=== PATIENT | male | born 1940 | race Caucasian/White ===

== ENCOUNTER 2019-05-07 07:57 | Outpatient (RCR) | payer MEDICARE, OTHER, SELFPAY ==
--- NOTE | 2019-05-07 08:28 | PTOPEVAL ---
Thank you for referring this patient to [facility]. Please review, sign, date and return this plan of care NONI. I agree with and certify that the following plan of care is medically necessary. Referring Physician Date Admitting Provider: Attending Provider: Shanique Holly NP Referring Provider: *PT Outpatient Evaluation Start: 05/07/19 08:02 Freq: Status: Active Protocol: Document 05/07/19 08:02 NESTOR (Rec: 05/07/19 08:28 NESTOR [id number]) Therapy Assessment Status Assessment Status Assessment Status Evaluation Outpatient Past Medical History Neurological History Hx Neurological Disorders No Significant History Cardiovascular History Hx Cardiac Catheterization Yes Hx Coronary Stent Yes Hx Hypertension Yes Respiratory History Hx Respiratory Disorders No Significant History Gastrointestinal History Hx Gastrointestinal Disorders No Significant History Genitourinary History Hx Genitourinary Disorders No Significant History Musculoskeletal History Hx Back Injury Yes Hx Back Pain Yes Hx Orthopedic Surgery Yes Hx Spinal Surgery Yes Hematological History Hx Hematological Disorders No Significant History Endocrine History Hx Endocrine Disorders No Significant History HEENT History Hx HEENT Disorders No Significant History Integumentary History Hx Skin Disorders No Significant History Reproductive History Hx Reproductive Disorders No Significant History Psychosocial History Hx Psychiatric Disorders No Significant History Pain History History of Any Previous or Ongoing No Significant History Instance of Pain Anesthesia History Hx Anesthesia Reactions No Significant History Other History Hx Cancer Yes: skin-basal cell Evaluation Information Problem Diagnosis spinal stenosis, s/p lumbar fusion Onset 05/18/18 Subjective Information Pt. reports that he underwent Query Text:As Reported By Patient/ back surgery on 05/18/18. He Family reports that he was hospitalized till last week. He states that pain is minimal currently, but states that pain will increase throughout the day. He reports that prior to his surgery he was not using a walker. He states that he is currently using a walker for all ambulation. He states that he is currently
== END 2019-06-01 08:25 | disposition home or self-care (01) ==
LOC: CHSPT 07:57
PROVIDERS: Visit Provider Nurse Practitioner
DX: Z98.1 Arthrodesis status (principal); M48.07 Spinal stenosis, lumbosacral region; E78.5 Hyperlipidemia, unspecified; I25.10 Atherosclerotic heart disease of native coronary artery without angina pectoris; I10 Essential (primary) hypertension; K21.9 Gastro-esophageal reflux disease without esophagitis
CPT/HCPCS: 97016; 97110; 97116; 97161; 97530

== ENCOUNTER 2019-11-05 08:46 | Outpatient (RCR) | payer MEDICARE, OTHER, SELFPAY ==
--- NOTE | 2019-11-05 10:07 | PTOPEVAL ---
Thank you for referring Jori Villegas to [facility]. Please review, sign, date and return this plan of care NNOI. I agree with and certify that the following plan of care is medically necessary. Referring Physician Date Admitting Provider: Attending Provider: PHYSICIAN NOT ON STAFF Referring Provider: *PT Outpatient Evaluation Start: 11/05/19 07:57 Freq: Status: Active Protocol: Document 11/05/19 08:40 NESTOR (Rec: 11/05/19 09:55 NESTOR [id number]) Therapy Assessment Status Assessment Status Assessment Status Evaluation Outpatient Past Medical History Neurological History Hx Neurological Disorders No Significant History Cardiovascular History Hx Cardiac Catheterization Yes Hx Coronary Stent Yes Hx Hypertension Yes Respiratory History Hx Respiratory Disorders No Significant History Gastrointestinal History Hx Gastrointestinal Disorders No Significant History Genitourinary History Hx Genitourinary Disorders No Significant History Musculoskeletal History Hx Back Injury Yes Hx Back Pain Yes Hx Orthopedic Surgery Yes Hx Spinal Surgery Yes Hematological History Hx Hematological Disorders No Significant History Endocrine History Hx Endocrine Disorders No Significant History HEENT History Hx HEENT Disorders No Significant History Integumentary History Hx Skin Disorders No Significant History Reproductive History Hx Reproductive Disorders No Significant History Psychosocial History Hx Psychiatric Disorders No Significant History Pain History History of Any Previous or Ongoing No Significant History Instance of Pain Anesthesia History Hx Anesthesia Reactions No Significant History Other History Hx Cancer Yes: skin-basal cell Evaluation Information Problem Diagnosis lumbar stenosis with neurogenic claudication Onset 10/17/19 Subjective Information Pt. reports that his back pain Query Text:As Reported By Patient/ started about the beginning Family of the month. 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 He states that he noted increase in back pain shortly after. He reports pain is only located on the right side and states that pain is most notable after getting out of a supine or seated position. He states
== END 2019-12-10 09:16 | disposition home or self-care (01) ==
LOC: CHSPT 08:46
DX: M48.062 Spinal stenosis, lumbar region with neurogenic claudication (principal)
CPT/HCPCS: 97014; 97110; 97161; G0283

== ENCOUNTER → 2021-01-06 11:02 | Outpatient (CLI) | payer BC, SELFPAY ==
--- NOTE | ~2021-01-06 | US_ITS ---
US renal BI 01/06/2021 11:29 Procedure: Realtime transabdominal ultrasound of the kidneys and bladder. Indication: Stage III chronic kidney disease Comparison: No prior studies for comparison. Findings: Renal echotexture is normal bilaterally without hydronephrosis, contour deforming mass or r enal calculus. There is a right renal cyst measuring 1.6 cm. No solid masses. The right kidney measur es 9.4 cm and left kidney measures 10.1 cm. Bladder within normal limits. Impression: 1: Right renal cyst measuring 1.6 cm. Reviewed, dictated and finalized at location A. Impression: 1: Right renal cyst measuring 1.6 cm.
== END ==
PROVIDERS: PCP Family Medicine; Visit Provider Internal Medicine Nephrology
DX: N18.31 Chronic kidney disease, stage 3a (principal); N28.1 Cyst of kidney, acquired
CPT/HCPCS: 76775

== ENCOUNTER 2021-10-06 10:58 | Outpatient (RCR) | payer BC, SELFPAY ==
--- NOTE | 2021-10-06 15:37 | PTOPEVAL ---
Thank you for referring Jori Villegas to [facility].? The patient is scheduled to be seen for therapy? ____x/week for ___ weeks. Please review, sign, date and return this plan of care NONI. I agree with and certify that the following plan of care is medically necessary. Referring Physician Date Admitting Provider: Attending Provider: Shay Rollins, MD Referring Provider: *PT Outpatient Evaluation Start: 10/06/21 10:54 Freq: Status: Active Protocol: Document 10/06/21 11:00 [facility] (Rec: 10/06/21 11:59 [facility] [id number]) Therapy Assessment Status Assessment Status Assessment Status Evaluation Outpatient Past Medical History Neurological History Hx Neurological Disorders No Significant History Cardiovascular History Hx Cardiac Catheterization Yes Hx Coronary Stent Yes Hx Hypertension Yes Respiratory History Hx Respiratory Disorders No Significant History Gastrointestinal History Hx Gastrointestinal Disorders No Significant History Genitourinary History Hx Genitourinary Disorders No Significant History Musculoskeletal History Hx Back Injury Yes Hx Back Pain Yes Hx Orthopedic Surgery Yes Hx Spinal Surgery Yes Hematological History Hx Hematological Disorders No Significant History Endocrine History Hx Endocrine Disorders No Significant History HEENT History Hx HEENT Disorders No Significant History Integumentary History Hx Skin Disorders No Significant History Reproductive History Hx Reproductive Disorders No Significant History Psychosocial History Hx Psychiatric Disorders No Significant History Pain History History of Any Previous or Ongoing No Significant History Instance of Pain Anesthesia History Hx Anesthesia Reactions No Significant History Other History Hx Cancer Yes: skin-basal cell Evaluation Information Problem Diagnosis Lumber Stenosis Onset 09/24/21 Additional Evaluation Detail Oswestry = 34% Functionally Declined Subjective Information Pt reports that his back pain Query Text:As Reported By Patient/ is more on his R side than his Family left. He can sleep on his R side, but not on his L side. He states that he can walk as far as he wants, but will have difficulty lifting his legs up high enough to clear tall grass. He states that he has cramping in the back of both of his thighs that gets worse
--- NOTE | 2021-11-19 08:04 | PTOPEVAL ---
Thank you for referring Jori Villegas to [facility].? The patient is scheduled to be seen for therapy? ____x/week for ___ weeks. Please review, sign, date and return this plan of care NONI. I agree with and certify that the following plan of care is medically necessary. Referring Physician Date Admitting Provider: Attending Provider: Shay Rollins, MD Referring Provider: *PT Outpatient Evaluation Start: 10/06/21 10:54 Freq: Status: Active Protocol: Document 11/19/21 06:58 [facility] (Rec: 11/19/21 08:03 [facility] [id number]) Therapy Assessment Status Assessment Status Assessment Status Progress Outpatient Past Medical History Neurological History Hx Neurological Disorders No Significant History Cardiovascular History Hx Cardiac Catheterization Yes Hx Coronary Stent Yes Hx Hypertension Yes Respiratory History Hx Respiratory Disorders No Significant History Gastrointestinal History Hx Gastrointestinal Disorders No Significant History Genitourinary History Hx Genitourinary Disorders No Significant History Musculoskeletal History Hx Back Injury Yes Hx Back Pain Yes Hx Orthopedic Surgery Yes Hx Spinal Surgery Yes Hematological History Hx Hematological Disorders No Significant History Endocrine History Hx Endocrine Disorders No Significant History HEENT History Hx HEENT Disorders No Significant History Integumentary History Hx Skin Disorders No Significant History Reproductive History Hx Reproductive Disorders No Significant History Psychosocial History Hx Psychiatric Disorders No Significant History Pain History History of Any Previous or Ongoing No Significant History Instance of Pain Anesthesia History Hx Anesthesia Reactions No Significant History Other History Hx Cancer Yes: skin-basal cell Evaluation Information Problem Diagnosis Lumber Stenosis Onset 09/24/21 Additional Evaluation Detail oswestry = 48% functionally declined (some discrepancy with scoring and subjective report) Subjective Information patient reports he feels Query Text:As Reported By Patient/ Alright this date. he reports Family he continues to have pain along the R side with turning to quickly, or sometimes turning the wrong way. he reports driving and riding in a vehicle doesnt bother him. he reports standing will increa
--- NOTE | 2021-11-27 08:25 | PTOPEVAL ---
Thank you for referring Jori Villegas to [facility].? The patient is scheduled to be seen for therapy? ____x/week for ___ weeks. Please review, sign, date and return this plan of care NONI. I agree with and certify that the following plan of care is medically necessary. Referring Physician Date Admitting Provider: Attending Provider: Shay Rollins, MD Referring Provider: *PT Outpatient Evaluation Start: 10/06/21 10:54 Freq: Status: Active Protocol: Document 11/27/21 07:05 [facility] (Rec: 11/27/21 08:23 [facility] [id number]) Outpatient Past Medical History Neurological History Hx Neurological Disorders No Significant History Cardiovascular History Hx Cardiac Catheterization Yes Hx Coronary Stent Yes Hx Hypertension Yes Respiratory History Hx Respiratory Disorders No Significant History Gastrointestinal History Hx Gastrointestinal Disorders No Significant History Genitourinary History Hx Genitourinary Disorders No Significant History Musculoskeletal History Hx Back Injury Yes Hx Back Pain Yes Hx Orthopedic Surgery Yes Hx Spinal Surgery Yes Hematological History Hx Hematological Disorders No Significant History Endocrine History Hx Endocrine Disorders No Significant History HEENT History Hx HEENT Disorders No Significant History Integumentary History Hx Skin Disorders No Significant History Reproductive History Hx Reproductive Disorders No Significant History Psychosocial History Hx Psychiatric Disorders No Significant History Pain History History of Any Previous or Ongoing No Significant History Instance of Pain Anesthesia History Hx Anesthesia Reactions No Significant History Other History Hx Cancer Yes: skin-basal cell Evaluation Information Problem Diagnosis Lumber Stenosis Onset 09/24/21 Additional Evaluation Detail oswestry = 30% functionally declined Subjective Information patient reports he conitnues Query Text:As Reported By Patient/ to have severe bakc pain at Family times. he reports his pain is increased with laying supine, standing, and walking for increased time. he reports he is schuedled to meet and see a doctor beginning a few weeks for possible injections to his lumbar spine. Pain Assessment Timing of Pain Assessment Timing of Pain Assessment Assessment Pain Scale Pain Scale Used Numeric (1 - 10) Self Report Pain Assessment Lower
== END 2021-11-27 10:25 | disposition home or self-care (01) ==
LOC: CHSPT 10:58
PROVIDERS: PCP Family Medicine; Visit Provider Family Medicine
DX: M48.07 Spinal stenosis, lumbosacral region (principal)
CPT/HCPCS: 97110; 97161; 97530

== ENCOUNTER 2021-12-14 08:51 | Outpatient (RCR) | payer BC, SELFPAY ==
--- NOTE | 2021-12-14 09:05 | PTOPEVAL1 ---
Evaluation Information Assessment Status Evaluation Diagnosis low back pain Subjective Information Pt went to a back specialist in [place] but has not yet had an MRI. He was on a prescription pain medication but his doctor took him off of it and he has been using extra strength tylenol. Pt reports most pain when he is standing, walking, or trying to sleep in his bed. Pain is localized in center of back and wraps around to side of hips. He can only sleep in a recliner and reports too much pain when sleeping in his bed. Pain is improving but slowly. Pt reports occasional N/T in his left foot. Denies weakness in legs, been using cane. Denies recent falls. Patient wants to be able to get rid of his pain for his activities. Reported Pain Level Pain Score 0: Self Report Assessment PT Clinical Summary Pt presents to physical therapy with low back pain , decreased strength, decreased mobility, and impaired balance. These deficits make it more challenging for him to safely and effectively walk , stand, and sleep without pain. He was provided with an HEP focused on improving mobility and strength within his tolerance. He will benefit from skilled PT to facilitate symptom relief, address the aforementioned impairments, and return to functional and recreational activities. Plan of Care PT Services Indicated Yes Treatment Frequency and 2x week for 8 visits Duration These treatments will address the objective and functional deficits as defined above. The patient will be advanced safely and appropriately in order for the patient to progress towards his/her prior level of function. Additional exercises will be introduced and as well as a comprehensive home exercise program upon discharge, if needed, ?to ensure carryover of functional gains achieved in the clinic. This treatment plan has been reviewed and agreement upon by the patient.
== END 2022-01-14 08:56 | disposition home or self-care (01) ==
LOC: CHSPT 08:51
PROVIDERS: PCP Family Medicine; Visit Provider Family Medicine
DX: M54.50 Low back pain, unspecified (principal)
CPT/HCPCS: 97014; 97110; 97161; 97530; G0283

== ENCOUNTER 2022-08-30 15:32 | Outpatient (CLI) | payer MEDICARE, SELFPAY ==
[2022-08-30 16:18] LABS: Basophils Absolute Auto 0.1 K/mm3 (0.0-0.1); Basophils Percent Auto 0.8 % (0.2-1.2); Eosinophils Absolute Auto 0.1 K/mm3 (0-0.3); Eosinophils Percent Auto 1.1 % (0-4.4); Hematocrit 44.1 % (42.0-52.0); Hemoglobin 14.8 g/dL (14.0-18.0); Immature Granulocyte Absolute 0.02 K/mm3 (0.00-0.031); Immature Granulocyte Percent A 0.3 % (0-0.5); Lymphocytes Absolute Auto 2.12 K/mm3 (0.9-3.2); Lymphocytes Percent Auto 28.6 % (18.3-44.2); Mean Corpuscular HGB Conc 33.6 g/dl (32-36); Mean Corpuscular Volume 92.3 fl (80-100); Mean Platelet Volume 11.6 fl (7.4-10.4); Monocytes Absolute Auto 0.8 K/mm3 (0.1-0.6); Monocytes Percent Auto 10.8 % (2.6-8.5); Neutrophils Absolute Auto 4.3 K/mm3 (1.3-6.7); Neutrophils Percent Auto 58.4 % (45.5-73.1); Platelet Count Result 236 k/mm3 (150-375); Red Blood Count 4.78 M/mm3 (4.6-6.20); Red Cell Distribution Width 12.8 % (11.5-14.5); White Blood Count 7.4 K/mm3 (4.5-10.0)
[2022-08-30 16:34] LABS: Anion Gap 10 mmol/L (8-16); Blood Urea Nitrogen 32 mg/dL (9-20); Calcium 9.4 mg/dL (8.4-10.2); Carbon Dioxide 28 mmol/L (22-30); Chloride 98 mmol/L (98-107); Estimated Glomerular Filt Rate > 60; Glucose 104 mg/dL (65-110); Phosphorus 3.6 mg/dL (2.5-4.5); Potassium 4.2 mmol/L (3.4-5.0); Sodium 136 mmol/L (137-145)
== END 2022-08-30 15:33 | disposition home or self-care (01) ==
PROVIDERS: PCP Family Medicine; Visit Provider Family Medicine
DX: N28.9 Disorder of kidney and ureter, unspecified (principal)
CPT/HCPCS: 36415; 80069; 85025

== ENCOUNTER 2025-02-25 17:24 | Outpatient (CLI) | payer BC, SELFPAY ==
--- NOTE | ~2025-02-25 | XR_ITS ---
EXAMINATION: XR chest 2V, 02/25/2025 17:45 PERINATAL TECH HISTORY: SOB COMPARISON: No comparisons available. Technique: 2 views obtained. Findings: The lungs are clear, no effusion. No pneumothorax. Heart is normal size. Mediastinal and hilar contours are within normal limits. Bony thorax no acute abnormality. Impression: No acute cardiopulmonary abnormality. Reviewed, dictated and finalized at location P. NATAL TECH Impression: No acute cardiopulmonary abnormality.
== END 2025-02-25 17:25 | disposition home or self-care (01) ==
LOC: CHSIMG 17:28
PROVIDERS: PCP Family Medicine
DX: R06.02 Shortness of breath (principal)
CPT/HCPCS: 71046